=== PATIENT | female | born 1960 | race Caucasian/White ===

== ENCOUNTER 2021-01-29 19:19 | Emergency (ER) | payer OTHER, SELFPAY ==
[2021-01-29 19:25] VITALS: BP 168/96; PULSE 77; RESP 16; TEMP 36.9; O2SAT 99
--- NOTE | 2021-01-29 19:27 | ED.URI ---
HPI - URI/Sore Throat General Chief Complaint: Upper Respiratory Infection Stated Complaint: CONGESTION/COUGH/LOST SENSE OF SMELL Time Seen by Provider: 01/29/21 19:27 Source: patient Mode of arrival: ambulatory Limitations: no limitations History of Present Illness HPI Narrative: Swetha Bush is a 60 yo female with no PMH states that she has had some sinus drainage since Wednesday and today on her way home from lost her sense of smell has been tooth short time for rapid test and so we will be ordering PCR Covid test for her to the drive-through at [place] Related Data Home Medications Medication Instructions Recorded Confirmed No Home Medications 01/29/21 01/29/21 Allergies Allergy/AdvReac Type Severity Reaction Status Date / Time amoxicillin AdvReac Rash Verified 01/29/21 19:29 Review of Systems Review of Systems: CONSTITUTIONAL: Denies fever, chills, sweats. EYES: Denies visual changes, redness, discharge. ENT: Denies rhinorrhea, congestion, sore throat, otalgia. Loss of sense of smell CARDIOVASCULAR: Denies chest pain, palpitations, edema. RESPIRATORY: Denies dyspnea, wheezing, cough; sinus drainage GASTROINTESTINAL: Denies abdominal pain, nausea, vomiting, diarrhea. GENITOURINARY: Denies dysuria, hematuria, abnormal discharge SKIN: Denies rash or itching. NEUROLOGIC: Denies numbness, or focal weakness. PSYCHIATRIC: Denies anxiety or depression. PMFSH Past Medical History Medical History No acute medical problems Social History Social History (Updated 01/29/21 @ 19:37 by Elva Figueroa CNP) Smoking status: Never smoker Alcohol intake: current Comments At time of signature, I agree with nursing past medical, surgical, social and family history. There is no relevant family history pertinent to the presenting complaint. Exam Narrative: GENERAL: This is a well-nourished, well-developed patient, in mild distress. HEAD: normocephalic, atraumatic. EYES: Sclera clear/white. Vision is grossly intact. EARS: External ears normal, auditory canals clear and without drainage, TMs normal without perforation. Hearing grossly intact. NOSE: External nose normal without nasal discharge, nares without redness, no rhinorrhea. THROAT: Mucous membranes moist, posterior pharynx pink NECK: Neck supple, non-tender CARDIOVASCULAR: Regular rate and rhythm without murmurs, gallops, or rubs. RESPIRATORY: Clear to auscultation. Breath sounds equal bilaterally. No wheezes, rales, or rhonchi. GASTROINTESTINAL: Abdomen soft, SKIN: warm, intact with no suspicious lesions or rash, good texture and turgor. NEURO: awake, alert, and oriented to person, place and time. There were no obvious focal neurologic abnormalities. Steady gait EXTREMITIES: Normal range of motion. BACK: Nontender without deformity Course Course Emergency Course: Patient still says she lost sense of smell on the way home and has had sinus drainage since Wednesday She PCR but that cannot be done today because of being closed in the morning so will be sent to drive-through at [place] on Wednesday Repeat blood pressure was 145/82, then on arrival patient states is high for her, has pcp Vital Signs Vital signs: Vital Signs Temperature 98.5 F 01/29/21 19:25 Pulse Rate 77 01/29/21 19:25 Respiratory Rate 16 01/29/21 19:25 Blood Pressure 168/96 H 01/29/21 19:25 Pulse Oximetry 99 01/29/21 19:25 Temperature 98.5 F 01/29/21 19:25 Pulse Rate 77 01/29/21 19:25 Respiratory Rate 16 01/29/21 19:25 Blood Pressure 168/96 H 01/29/21 19:25 Pulse Oximetry 99 01/29/21 19:25 MDM - URI/Sore Throat Differential Diagnosis Differential diagnosis: Likely upper respiratory infection, viral infection, pharyngitis and other Critical Care Time Critical Care Time Critical Care Time: No Discharge Plan Discharge Clinical Impression: Upper respiratory infection Qualifiers: URI t
--- NOTE | 2021-01-29 20:11 | PC.NURSE ---
recheck vital signs before discharge 145/82 HR 71
== END 2021-01-29 19:56 | disposition home or self-care (01) ==
PROVIDERS: Emergency Provider Nurse Practitioner
DX: J06.9 Acute upper respiratory infection, unspecified (principal)
CPT/HCPCS: 99211; G0463